=== PATIENT | male | born 1965 | race Caucasian/White ===

== ENCOUNTER → 2025-05-25 | Outpatient (CLI) | payer BC, SELFPAY ==
--- NOTE | 2025-05-25 13:03 | RAD_ITS ---
PROCEDURE: CHEST PA AND LATERAL 05/25/2025 REASON FOR EXAM: MITRAL VALVE REPAIR TECHNIQUE: Procedure Code: RADCXR Modality: DX Procedure: CHEST PA AND LATERAL FINDINGS: The heart is partially obscured due to a large left pleural effusion. Prior sternotomy. Small right pleural effusion. Atrial appendage clip and mitral valve replacement. RAD/Chest PA and Lateral IMPRESSION: Large left and small right pleural effusions. Reading Location: [id number]
[2025-05-25 15:08] LABS: Hematocrit 29.6 % (40-54); Hemoglobin 9.7 g/dL (13.0-16.5); Mean Corp Hgb Conc 32.8 g/dL (32-36); Mean Corpuscular Volume 88.6 fL (80-94); Mean Platelet Vol. 10.0 fl (6.2-12.0); Platelet Count 538 K/mm3 (150-450); RBC Distribution Width CV 14.4 % (11.6-14.6); RBC Distribution Width SD 46.4 fl (35.1-43.9); Red Blood Count 3.34 M/mm3 (4.6-6.2); White Blood Count 9.5 K/mm3 (4.4-11.0)
[2025-05-25 15:23] LABS: Anion Gap 13 (5-15); BUN 19 mg/dL (4-19); BUN/Creat Ratio 17.9 RATIO (10-20); Calcium,Total 9.6 mg/dL (7.6-11.0); Carbon Dioxide 27.1 mmol/L (21.0-32.0); Chloride 99 mmol/L (98-108); Glucose 88 mg/dL (70-99); Potassium 4.1 mmol/L (3.3-5.1)
== END | disposition home or self-care (01) ==
PROVIDERS: PCP Family Medicine
DX: Z98.890 Other specified postprocedural states (principal); D69.6 Thrombocytopenia, unspecified
CPT/HCPCS: 36415; 71046; 80048; 85027

== ENCOUNTER → 2025-05-31 | Outpatient (CLI) | payer BC, SELFPAY ==
--- NOTE | 2025-05-31 14:18 | RAD_ITS ---
PROCEDURE: CHEST PA AND LATERAL 05/31/2025 REASON FOR EXAM: S/P CARDIAC SURGERY TECHNIQUE: Procedure Code: RADCXR Modality: DX Procedure: CHEST PA AND LATERAL COMPARISON: 05/25/2025 FINDINGS: The heart is partially obscured due to a stable large left pleural effusion. Prior sternotomy. Interval resolution of trace right base effusion. Atrial appendage clip and mitral valve replacement. RAD/Chest PA and Lateral IMPRESSION: Stable large left pleural effusion. Interval resolution of trace right base ef fusion. No pneumothorax. Reading Location: [id number]
[2025-05-31 18:41] LABS: Hematocrit 33.5 % (40-54); Hemoglobin 10.7 g/dL (13.0-16.5); Mean Corp Hgb Conc 31.9 g/dL (32-36); Mean Corpuscular Volume 87.2 fL (80-94); Mean Platelet Vol. 10.3 fl (6.2-12.0); Platelet Count 492 K/mm3 (150-450); RBC Distribution Width CV 14.1 % (11.6-14.6); RBC Distribution Width SD 45.6 fl (35.1-43.9); Red Blood Count 3.84 M/mm3 (4.6-6.2); White Blood Count 8.9 K/mm3 (4.4-11.0)
[2025-05-31 19:10] LABS: Anion Gap 15 (5-15); BUN 19 mg/dL (4-19); BUN/Creat Ratio 15.6 RATIO (10-20); Calcium,Total 9.6 mg/dL (7.6-11.0); Carbon Dioxide 24.1 mmol/L (21.0-32.0); Chloride 98 mmol/L (98-108); Glucose 121 mg/dL (70-99); Potassium 3.8 mmol/L (3.3-5.1)
== END | disposition home or self-care (01) ==
PROVIDERS: PCP Family Medicine
DX: D69.6 Thrombocytopenia, unspecified (principal); Z98.890 Other specified postprocedural states; Z95.2 Presence of prosthetic heart valve
CPT/HCPCS: 36415; 71046; 80048; 85027

== ENCOUNTER → 2025-06-21 | Outpatient (CLI) | payer OTHER, SELFPAY ==
--- NOTE | 2025-06-21 08:24 | US_ITS ---
PROCEDURE: THORACENTESIS W US 06/21/2025 REASON FOR EXAM: PLEURAL EFFUSION TECHNIQUE: Left THORACENTESIS W US FINDINGS: Procedure: Following informed consent, and using standard sterile technique, an ultrasound- guided left thoracentesis was performed via a posterior approach. 2% lidocaine local anesthesia was followed by placement of a 5 [place] Yueh catheter into the pleural space. Approximately 1210 mL clear abe fluid was successfully removed. No complication was encountered, in the patient left the department in good condition without significant complaint. US/Thoracentesis W US IMPRESSION: Successful ultrasound-guided left thoracentesis. Reading Location: [place] [id number]
[2025-06-21 09:19] VITALS: BP 129/76; PULSE 91; RESP 18; O2SAT 100
[2025-06-21 09:21] VITALS: BP 140/83; PULSE 92; RESP 18; O2SAT 100
[2025-06-21 09:22] VITALS: BP 137/75; PULSE 95; RESP 18; O2SAT 100
== END | disposition home or self-care (01) ==
PROVIDERS: PCP Family Medicine
DX: J90 Pleural effusion, not elsewhere classified (principal)
CPT/HCPCS: 32555

== ENCOUNTER → 2025-06-22 | Outpatient (CLI) | payer OTHER, SELFPAY ==
--- NOTE | 2025-06-22 10:56 | RAD_ITS ---
PROCEDURE: CHEST PA AND LATERAL 06/22/2025 REASON FOR EXAM: L PLEURAL EFFUSION. FU AFTER THORACENTESIS. TECHNIQUE: Procedure Code: RADCXR Modality: DX Procedure: CHEST PA AND LATERAL COMPARISON: 05/31/2025 FINDINGS: No focal consolidation. Interval decreased left base pleural effusion, now mild in volume. Cardiac silhouette is within normal limits. No acute fractures. Median sternotomy wires. Cardiac clip. RAD/Chest PA and Lateral IMPRESSION: Interval decreased left base pleural effusion, now mild in volume. Reading Location: [id number]
[2025-06-22 15:22] LABS: Hematocrit 37.7 % (40-54); Hemoglobin 11.9 g/dL (13.0-16.5); Mean Corp Hgb Conc 31.6 g/dL (32-36); Mean Corpuscular Volume 85.1 fL (80-94); Mean Platelet Vol. 11.0 fl (6.2-12.0); Platelet Count 286 K/mm3 (150-450); RBC Distribution Width CV 14.7 % (11.6-14.6); RBC Distribution Width SD 45.6 fl (35.1-43.9); Red Blood Count 4.43 M/mm3 (4.6-6.2); White Blood Count 11.8 K/mm3 (4.4-11.0)
[2025-06-22 16:07] LABS: Vitamin B12 510 pg/mL (180-914); Vitamin D,25 Hydroxy 30.7 ng/mL (30-100)
[2025-06-22 16:15] LABS: AST(SGOT) 18 U/L (<=37); Alanine Aminotransfer ALT/SGPT 10 U/L (<=46); Albumin, Serum 3.9 g/dL (3.4-4.8); Alkaline Phosphatase 74 U/L (40-129); Anion Gap 15 (5-15); BUN 17 mg/dL (4-19); BUN/Creat Ratio 15.3 RATIO (10-20); Calcium,Total 9.6 mg/dL (7.6-11.0); Carbon Dioxide 23.4 mmol/L (21.0-32.0); Chloride 96 mmol/L (98-108); Globulin 3.0 g/dL (2.2-4.2); Glucose 90 mg/dL (70-99); Potassium 4.2 mmol/L (3.3-5.1)
== END | disposition home or self-care (01) ==
LOC: MTLAB 10:56
PROVIDERS: PCP Family Medicine; Referring Provider Family Medicine; Visit Provider Family Medicine
DX: J90 Pleural effusion, not elsewhere classified (principal); I50.9 Heart failure, unspecified; R53.83 Other fatigue
CPT/HCPCS: 36415; 71046; 80053; 82306; 82607; 84443; 85027

== ENCOUNTER → 2025-07-11 | Outpatient (CLI) | payer MEDICAID, OTHER, SELFPAY ==
[2025-07-11 15:28] LABS: Anion Gap 14 (5-15); BUN 25 mg/dL (4-19); BUN/Creat Ratio 19.3 RATIO (10-20); Calcium,Total 9.7 mg/dL (7.6-11.0); Carbon Dioxide 26.7 mmol/L (21.0-32.0); Chloride 100 mmol/L (98-108); Glucose 110 mg/dL (70-99); Potassium 3.8 mmol/L (3.3-5.1)
== END | disposition home or self-care (01) ==
PROVIDERS: PCP Family Medicine; Referring Provider Internal Medicine Cardiovascular Disease; Visit Provider Internal Medicine Cardiovascular Disease
DX: I50.9 Heart failure, unspecified (principal); I27.20 Pulmonary hypertension, unspecified; I05.9 Rheumatic mitral valve disease, unspecified
CPT/HCPCS: 36415; 80048